=== PATIENT | male | born 1960 | race African-American/Black ===

== ENCOUNTER 2023-03-01 13:03 | Outpatient (AMB) | payer OTHER, SELFPAY ==
--- NOTE | 2023-03-01 13:10 | A.SPINEOV_ITS ---
Intake Intake Visit Reasons: Neck pain Intake Note: Mr. Fields is here today c/o neck pain. MRI done @ [facility]. 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 He is a 63-year-old gentleman who underwent L5-S1 anterior lumbar interbody fusion by Dr. Nix about 10 years ago for low back pain going down his right leg. He underwent the procedure, had no complications but unfortunately the pain never got better. The pain bothers him if he sitting for any length of time, but does not bother him when he gets up and walks. If he is driving in the car for any length of time he has to get up and move around. He feels like he has tingling going down his leg into his calf and the top of his foot. He saw the surgeon after surgery who did imaging and told him that everything went just fine. Sought 2nd opinion at [facility] and they said they could not find anything wrong with him. The pain bothers him on a daily basis. If he lies down flat the pain will improve. He does not have any pain down the left leg. If the pain gets really bad he will take [id number] medications, anti-inflammatories etc.. He has tried physical therapy and acupuncture to treat this but no injections. PMH: He is a left hip replacement, tore meniscus with surgery on both knees, lumbar interbody fusion anteriorly and a procedure before that which sounds like a lumbar microdiskectomy. Social hx: He does not smoke Medications: Centrum vitamins, amlodipine, Allergies: None Physical exam: His gait is normal, he has pain with ROBERTA testing hips laterally which gives some pain along the backside of his lower lumbar region. Positive finger Mariely test. Strength and gait are normal. Imaging review: Lumbar MRI done at [facility] shows postsurgical changes at the L5- S1 interbody space, with large anterior osteophytes. It is very difficult to make out the outline of the interbody cage. There appears to be some subsidence with collapsing down of the disc. I do not have his original preoperative MRI to compare to. Impression: 63-year-old gentleman with a history of 2 previous lumbar operation s, the last 1 about 10 years ago which was an L5-S1 anterior lumbar interbody fusion done at [facility] by , who had no relief of his back pain or right leg pain after surgery. Is continued to frustrate him as he experiences on a daily basis. He sought a 2nd opinion at [facility]. He could not remember the name but tells me that they told him everything looked fine on the MRI that there was nothing wrong with him. He has continued to do conservative treatment in form of physical therapy and egmn-xay-kgoeoex medications as needed. The pain bothers him the most when he is sitting but does not bother him when he is up moving around. His imaging is somewhat unusual and that I do not see any bone bridging across the interbody space where the graft would typically be. In fact I have a hard time making out that there is a graft in there at all. It makes me think that there could be subsidence and we can rule this out with a noncontrast CT of the lumbar spine. The 2nd possibility is that there is some kind of other explanation like SI joint inflammation. He does have positive ROBERTA testing and positive finger Mariely testing. Will send him to Dr. Ruiz to see we can do a diagnostic block on the SI joint to see if this may be an alternate explanation for where his pain is coming from. Thank you for allowing us to care for your patient. The total time spent with this visit with this patient was 45 minutes reviewing history, physical exam, lumbar imaging review, and implementation of treatment plan or further diagnostic testing Shaun Rm MD,PhD [facility] Orders: Orders XR pelvis min 3V Today G89.29 - Other chronic pain, M53.3 - Sacrococcygeal disorders, not elsewhere classified, M54.9 - Dorsalgia, unspecified XR lumbar spine 4V min Today M54.9 - Dorsalgia, unspecified CT lumbar spine wo IV con Today M54.9 - Dorsalgia, unspecified Referrals Physiatry Referral G89.29 - Other chronic pain, M53.3 - Sacrococcygeal disorders, not elsewhere classified Coding Level of Care Code New Pt Level 4 (83834) Diagnoses Back pain M54.9 Chronic SI joint pain M53.3; G89.29
== END 2023-03-01 13:39 | disposition home or self-care (01) ==
PROVIDERS: PCP Internal Medicine; Referring Provider Internal Medicine; Visit Provider Physician Assistant
DX: M54.9 Dorsalgia, unspecified (principal); M53.3 Sacrococcygeal disorders, not elsewhere classified; G89.29 Other chronic pain
CPT/HCPCS: 99204

== ENCOUNTER 2023-03-01 13:03 | Outpatient (REF) | payer OTHER, SELFPAY ==
--- NOTE | ~2023-03-01 | XR_ITS ---
EXAMINATION: XR LUMBAR SPINE XR PELVIS CLINICAL INFORMATION: Back pain, sacrococcygeal disorders. COMPARISON: MR lumbar spine 12/09/2022. TECHNIQUE: Four views of the lumbar spine including flexion and extension views. Three views of the bilateral sacroiliac joints. FINDINGS: SACROILIAC JOINTS: Left total hip prosthesis incompletely imaged. AP views only of the left hip demonstrate advanced degenerative changes with loss of disc space height and subchondral sclerosis. Postsurgical material characteristic of hernia repair overlies the pelvis. Sclerosis along the pubic symphysis. Moderate degenerative changes in the bilateral sacroiliac joints, left greater than right. LUMBAR SPINE: Postsurgical changes of interbody fusion L5-S1 better characterized on prior exams. Multilevel lumbar spondylosis with loss of disc space height and degenerative changes, mostly involving L3-L4, L4-L5 and L5-S1. Multilevel facet arthropathy. XR/XR lumbar spine 4V min IMPRESSION: 1. Advanced degenerative changes on AP views of the left hip could be evaluated with dedicated left hip images. 2. Moderate degenerative changes in the bilateral sacroiliac joints, greater on the left. 3. Multilevel lumbar spondylosis.
--- NOTE | ~2023-03-01 | XR_ITS ---
EXAMINATION: XR LUMBAR SPINE XR PELVIS CLINICAL INFORMATION: Back pain, sacrococcygeal disorders. COMPARISON: MR lumbar spine 12/09/2022. TECHNIQUE: Four views of the lumbar spine including flexion and extension views. Three views of the bilateral sacroiliac joints. FINDINGS: SACROILIAC JOINTS: Left total hip prosthesis incompletely imaged. AP views only of the left hip demonstrate advanced degenerative changes with loss of disc space height and subchondral sclerosis. Postsurgical material characteristic of hernia repair overlies the pelvis. Sclerosis along the pubic symphysis. Moderate degenerative changes in the bilateral sacroiliac joints, left greater than right. LUMBAR SPINE: Postsurgical changes of interbody fusion L5-S1 better characterized on prior exams. Multilevel lumbar spondylosis with loss of disc space height and degenerative changes, mostly involving L3-L4, L4-L5 and L5-S1. Multilevel facet arthropathy. XR/XR pelvis min 3V IMPRESSION: 1. Advanced degenerative changes on AP views of the left hip could be evaluated with dedicated left hip images. 2. Moderate degenerative changes in the bilateral sacroiliac joints, greater on the left. 3. Multilevel lumbar spondylosis.
== END 2023-03-01 13:04 | disposition home or self-care (01) ==
LOC: HO.HOSX 13:03
PROVIDERS: PCP Internal Medicine; Referring Provider Internal Medicine; Visit Provider Physician Assistant
DX: M53.3 Sacrococcygeal disorders, not elsewhere classified (principal); G89.29 Other chronic pain; M54.9 Dorsalgia, unspecified
CPT/HCPCS: 72110; 72190; 99202

== ENCOUNTER 2023-05-10 16:35 | Outpatient (REF) | payer MEDICARE, MEDICAID, SELFPAY ==
--- NOTE | ~2023-05-10 | CT_ITS ---
EXAMINATION: CT LUMBAR SPINE WITHOUT CONTRAST CLINICAL INFORMATION: evaluate for L5-S1 nonfusion COMPARISON: MRI lumbar spinal is 2022 TECHNIQUE: A multidetector CT acquisition of the lumbar spine is obtained without contrast. This CT examination was performed using dose optimization techniques as appropriate, variously including the following: *Automated exposure control *Adjustment of mA and/or kV according to patient size (this includes techniques or standardized protocols for targeted exams where dose is matched to indication/reason for exam; i.e. extremities or head) *Use of iterative reconstruction technique DLP: 836 mGy-cm FINDINGS: Please note the L5-S1 intervertebral disc space is incompletely imaged, limiting diagnostic assessment. Again noted postoperative changes related to interbody fusion at this level with partial intragraft osseous bridging to the L5 inferior endplate without fusion to the partially imaged S1 upper endplate. There is vacuum disc phenomenon at this level and the subcortical cystic change/sclerosis, more pronounced along the imaged S1 upper endplate. Incompletely imaged imaged prominent ventral disc osteophyte complex at this level. In conjunction with prior MRI from 12/09/2022, findings are most compatible with pseudoarthrosis at this level. Straightening of the normal lumbar lordosis.Grade 1 retrolisthesis at L5-S1. Vertebral body heights are maintained. There is no suspicious osseous lesion. The remainder of the intervertebral disc heights are preserved. Please not canal patency is not well assessed on this examination due to inherent limitations of CT without intrathecal contrast. Within these limitations, lumbar spondylosis is not substantially changed since MRI from 12/09/2022; please refer to that report for discussion of level by level detail, including severe left and moderate to severe right neural foraminal stenosis at L5-S1 with compression of the exiting L5 nerve roots. Limited evaluation of the intra-abdominal structures without significant abnormalities. The abdominal aorta is of normal contour and caliber. CT/CT lumbar spine wo IV con IMPRESSION: Please note the L5-S1 intervertebral disc space is incompletely imaged, limiting diagnostic assessment. Within this limitation, findings described above are compatible with a chronic pseudoarthrosis at L5-S1. Please not canal patency is not well assessed on this examination due to inherent limitations of CT without intrathecal contrast. Within these limitations, lumbar spondylosis is not substantially changed since MRI from 12/09/2022; please refer to that report for discussion of level by level detail,
== END 2023-05-10 16:36 | disposition home or self-care (01) ==
LOC: HO.CT 16:35
PROVIDERS: PCP Internal Medicine; Visit Provider Physician Assistant
DX: M54.9 Dorsalgia, unspecified (principal)
CPT/HCPCS: 72132

== ENCOUNTER 2023-06-15 14:38 | Outpatient (AMB) | payer OTHER, SELFPAY ==
--- NOTE | 2023-06-15 15:36 | HO.SPINEOV ---
Intake Intake Visit Reasons: discuss surgery Intake Note: Mr. Fields is here today to discuss surgery. 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 His main complaint is pain around the SI joint area radiating to his groin and down his right leg with a predominant pain around the area of the SI joint. He underwent an L5-S1 lumbar fusion for the symptoms that did not help. A CT scan shows L5-S1 interbody cage with fusion. I think this patient is suffering from a right SI joint dysfunction and therefore I am going to refer him for a right SI joint diagnostic block. He will return to the office to discuss the results and possibly schedule him for an SI joint fusion. I spent 20 minutes in this consult reviewing imaging and discussing plan. Sami Rm MD, PhD Spine Fellowship Trained Neurosurgeon Director, [facility] Orders: Referrals Physiatry Referral G89.29 - Other chronic pain, M53.3 - Sacrococcygeal disorders, not elsewhere classified Coding Level of Care Code Est Pt Level 3 (42651) Diagnoses Chronic SI joint pain M53.3; G89.29
== END 2023-06-15 15:51 | disposition home or self-care (01) ==
PROVIDERS: PCP Internal Medicine; Visit Provider Neurological Surgery
DX: M53.3 Sacrococcygeal disorders, not elsewhere classified (principal); G89.29 Other chronic pain
CPT/HCPCS: 99213

== ENCOUNTER → 2023-06-15 14:38 | Outpatient (BNVA) | payer OTHER, SELFPAY | PROVIDERS: PCP Internal Medicine; Visit Provider Neurological Surgery | DX: M53.3 Sacrococcygeal disorders, not elsewhere classified (principal); G89.29 Other chronic pain | CPT/HCPCS: 99212 ==